=== PATIENT | female | born 1970 | race Caucasian/White ===

== ENCOUNTER 2016-09-16 14:35 | Emergency (ER) | payer BC ==
[2016-09-16 16:39] VITALS: BP 166/91
--- NOTE | 2016-09-16 16:53 | UC ---
Colt Barrera Claudia, scribed for Edward Baldwin MD on 09/16/16 at 1543 . Abdominal Pain Female HPI - HPI Summary HPI Summary: 46 year old female presents to the [facility] with epigastric pain. Pt notes the pain has been intermittent since April 2016. She notes nausea and diarrhea. She also noted AK in May 2016 but notes the pain is different from that episode. She notes that she takes plavix daily. She also notes that the pain is sometimes aggravated with certain foods like pizza and coffee and is not alleviated with milk. Pt notes the pain is intermittent sharp pain of 7-8/10 and spontaneously resolves. Pt denies constipation. - History of Current Complaint Chief Complaint: UCGI Stated Complaint: ABDOMINAL PAIN Time Seen by Provider: 09/16/16 15:26 Hx Obtained From: Patient Onset/Duration: Gradual Onset, Lasting Weeks, Still Present Timing: Intermittent Episodes Lasting: Pain Scale Used: 0-10 Numeric - 7-8/10 Location: Epigastric Radiates: No Character: Sharp Aggravating Factor(s): Other: - some foods: pizza, coffee Alleviating Factor(s): Nothing, Other: - spontaneously resolved Associated Signs and Symptoms: Positive: Nausea, Vomiting, Diarrhea, Other: - epigastric abd pain. Negative: Constipation Allergies/Adverse Reactions: Allergies Allergy/AdvReac Type Severity Reaction Status Date / Time No Known Allergies Allergy Verified 09/16/16 15:32 Home Medications: Home Medications Bupropion HCl [Bupropion HCl Xl] 150 mg PO DAILY 09/16/16 [History Confirmed ] Pantoprazole TAB (NF) [Protonix TAB (NF)] 20 mg PO DAILY 09/16/16 [History Confirmed 09/16/16] PMH/Surg Hx/FS Hx/Imm Hx Previously Healthy: Yes Endocrine History Of: Denies: Diabetes, Thyroid Disease, Hyperthyroidism, Hypothyroidism Cardiovascular History Of: Reports: Cardiac Disorders - AK 06/14; 1 stent placed , Hypertension Denies: Pacemaker/ICD Respiratory History Of: Denies: COPD, Asthma GI/ History Of: Denies: Ulcer Psychological History Of: Denies: Anxiety, Depression - Surgical History Surgical History: Yes Surgery Procedure, Year, and Place: left knee ARTHROSCOPY; tubal ligation; hysterectomy; dental extractions; cardiac stent - Family History Known Family History: Positive: Cardiac Disease Negative: Seizure Disorder - Social History Occupation: Employed Full-time Lives: With Family Alcohol Use: None Substance Use Type: None Smoking Status (MU): Heavy Every Day Tobacco Smoker Type: Cigarettes Amount Used/How Often: 1/2 ppd Length of Time of Smoking/Using Tobacco: started at age 16 Have You Smoked in the Last Year: Yes Cessation Counseling: Patient Advised to Stop - Immunization History Most Recent Influenza Vaccination: 2014 Most Recent Tetanus Shot: UTD Most Recent Pneumonia Vaccination: none Review of Systems Constitutional: Negative Skin: Negative Eyes: Negative ENT: Negative Respiratory: Negative Cardiovascular: Negative Gastrointestinal: Abdominal Pain, Diarrhea, Other - nausea Genitourinary: Negative Motor: Negative Neurovascular: Negative Musculoskeletal: Negative Neurological: Negative Psychological: Negative All Other Systems Reviewed And Are Negative: Yes Physical Exam Triage Information Reviewed: Yes Vital Signs: Initial Vital Signs Temp 98.9 F 09/16/16 15:25 Pulse 75 09/16/16 15:25 Resp 16 09/16/16 15:25 BP 134/67 09/16/16 15:25 Pulse Ox 100 09/16/16 15:25 - Additional Comments Vital signs: Reviewed Gen.: Patient is a well developed and nourished female in no acute distress. Patient is sitting comfortably on the stretcher. Head: Normacephalic and atraumatic Eyes: PERRLA, EOMI x2. Ears: Right ear canal and TM WNL and Left ear canal and TM WNL Nose and mouth: WNL Neck: Supple, Positive bilateral submandibular and anterior cervical lymphadenopathy. No JVD Lungs: CTA B/L CVS: S1 & S2 present. No murmurs appreciated. ABDOMEN: Soft, epigastric tenderness w/ positive BS. EXT: FROM x 4 NEURO: A+O X 3. Diagnostics - EKG Cardiac Rate: NL Cardiac Rhythm: Sinus: Normal - rate: 71 beats/min ST Segment: Normal - no ST elevation Abd Pain Female Course/Dx - Course Course Of Treatment: AP: 46 year old female presents to the [facility] with epigastric pain. Pt notes the pain has been intermittent since April 2016. She notes nausea and diarrhea. She also noted AK in May 2016 but notes the pain is different from that episode. She notes that she takes plavix daily. She also notes that the pain is sometimes aggravated with certain foods like pizza and coffee and is not alleviated with milk. Pt notes the pain is intermittent sharp pain of 7-8/10 and spontaneously resolves. Pt denies constipation. EKG shows NSR with no ST elevation. However the pt reports that when she had an AK she also had epigastric pain and it was shown that she had a NON ST AK. Therefore, the pt is transferred to ED. I discussed this case with provider in the ED whom accepts the pt for transfer. Pt is hemodynamically stable for transfer. - Differential Dx/Diagnosis Differential Diagnosis: ACS, Gall Bladder Disease, Pancreatitis, Urinary Tract Infection Provider Diagnoses: Epigastric pain Discharge - Discharge Plan Condition: Stable Disposition: AGAINST MEDICAL ADVICE Discharge Disposition Comment: [place] [facility] [place] Referrals: No Primary Care Phys,NOPCP [Primary Care Provider] - The documentation as recorded by the Colt mendoza Claudia accurately reflects the service I personally performed and the decisions made by me, Edward Baldwin MD.
== END 2016-09-16 16:30 | disposition left against medical advice (07) ==
LOC: UCEAST 14:35
DX: R10.13 Epigastric pain (principal); F17.210 Nicotine dependence, cigarettes, uncomplicated; I25.2 Old myocardial infarction; Z79.02 Long term (current) use of antithrombotics/antiplatelets
CPT/HCPCS: 93005; 99212; G0463

== ENCOUNTER 2016-09-16 16:48 | Emergency (ER) | payer BC ==
[2016-09-16 17:56] LABS: Urine Bacteria Absent (Absent); Urine Bilirubin Negative (Negative); Urine Glucose Negative (Negative); Urine Nitrite Negative (Negative)
--- NOTE | 2016-09-16 17:57 | ED ---
Abdominal Pain/Female - HPI Summary HPI Summary: Patient presented to [facility] for abdominal pain and was referred to the ED for evaluation due to her history of [place] and stent placement in 2016. Her pain is epigastric and is worse after meals, and has been intermittent over the last 2 weeks. She has a history of reflux that is controlled with omeprazole. She denies radiant pain, nausea, sweating, or dizziness. She denies recent illness, fever, chills, vomiting or constipation. She has chronic diarrhea, and denies urinary symptoms. - History of Current Complaint Chief Complaint: EDAbdPain Stated Complaint: CHEST PAIN-SENT FROM [facility] Time Seen by Provider: 09/16/16 17:32 Hx Obtained From: Patient ?: No Onset/Duration: Gradual Onset, Lasting Hours, Still Present Timing: Minutes Severity Initially: Mild Severity Currently: Moderate Pain Intensity: 7 Location: Epigastric Radiates: No Character: Dull Aggravating Factor(s): Food Alleviating Factor(s): Nothing Allergies/Adverse Reactions: Allergies Allergy/AdvReac Type Severity Reaction Status Date / Time No Known Allergies Allergy Verified 09/16/16 15:32 PMH/Surg Hx/FS Hx/Imm Hx Endocrine/Hematology History: Denies: Hx Diabetes, Hx Thyroid Disease Cardiovascular History: Reports: Hx Hypertension, Hx Myocardial Infarction - with 1 stent placed Denies: Hx Pacemaker/ICD, Hx Peripheral Vascular Disease Respiratory History: Denies: Hx Asthma, Hx Chronic Obstructive Pulmonary Disease (COPD) GI History: Reports: Hx Gastroesophageal Reflux Disease Denies: Hx Ulcer Musculoskeletal History: Denies: Hx Arthritis, Hx Osteoporosis Sensory History: Denies: Hx Hearing Aid Neurological History: Denies: Hx Headaches Psychiatric History: Denies: Hx Anxiety, Hx Depression, Hx Panic Disorder - Surgical History Surgery Procedure, Year, and Place: left knee ARTHROSCOPY; tubal ligation; hysterectomy; dental extractions; cardiac stent - Immunization History Date of Tetanus Vaccine: UTD Date of Influenza Vaccine: unk Infectious Disease History: Yes Infectious Disease History: Denies: Hx Clostridium Difficile, Hx Hepatitis, Hx Human Immunodeficiency Virus (HIV), Hx of Known/Suspected MRSA, Hx Shingles, Hx Tuberculosis, History Other Infectious Disease, Traveled Outside the [place] in Last 30 Days - Family History Known Family History: Positive: Cardiac Disease - Mother in 70s of [place], Other - Father, lung cancer Negative: Seizure Disorder - Social History Occupation: Employed Full-time Lives: With Family Alcohol Use: None Substance Use Type: Reports: None Smoking Status (MU): Former Smoker Type: Cigarettes Amount Used/How Often: 1/2 ppd Length of Time of Smoking/Using Tobacco: started at age 16 Have You Smoked in the Last Year: Yes Review of Systems Negative: Fever, Chills Negative: Sore Throat Negative: Chest Pain Negative: Shortness Of Breath Positive: Abdominal Pain - epigastric. Negative: Vomiting, Diarrhea Negative: Myalgia Negative: Bruising Negative: Headache, Weakness Negative: Anxious All Other Systems Reviewed And Are Negative: Yes Physical Exam - Summary Physical Exam Summary: Pleasant obese female in no acute distress seated on bed. Triage Information Reviewed: Yes Vital Signs On Initial Exam: Initial Vitals Temp Pulse Resp BP Pulse Ox 97.7 F 86 16 143/83 100 09/16/16 16:51 09/16/16 16:51 09/16/16 16:51 09/16/16 16:51 09/16/16 16:51 Vital Signs Reviewed: Yes Appearance: Positive: Well-Appearing, Pain Distress, Obese Skin: Positive: Warm, Skin Color Reflects Adequate Perfusion, Dry, Soft Head/Face: Positive: Normal Head/Face Inspection Eyes: Positive: EOMI, SAM, Conjunctiva Clear ENT: Positive: Hearing grossly normal, Pharynx normal Neck: Positive: Supple, Nontender, No Lymphadenopathy Respiratory/Lung Sounds: Positive: Clear to Auscultation, Breath Sounds Present Cardiovascular: Positive: RRR Abdomen Description: Positive: Soft. Negative: Nontender - primarily epigastric tenderness, with mild diffuse tenderness, CVA Tenderness (R), CVA Tenderness (L), Distended - body habitus is limiting, Guarding, McBurney's Point Tenderness, Peritoneal Signs, Pulsatile Mass Bowel Sounds: Positive: Present Musculoskeletal: Negative: Edema Left, Edema Right Neurological: Positive: Sensory/Motor Intact, Alert, Oriented to Person Place, Time, NV Bundle Intact Distally, Normal Gait Psychiatric: Positive: Affect/Mood Appropriate AVPU Assessment: Alert Diagnostics - Vital Signs Vital Signs Temp Pulse Resp BP Pulse Ox 09/16/16 16:51 97.7 F 86 16 143/83 100 - Laboratory Result Diagrams: 09/16/16 17:55 09/16/16 17:55 Lab Statement: Any lab studies that have been ordered have been reviewed, and results considered in the medical decision making process. - Ultrasound No standard instances Ultrasound Interpretation: No Acute Changes Ultrasound Interpretation Completed By: Radiologist Re-Evaluation - Re-Evaluation First Eval Re-Evaluation Time: 19:40 Change: Unchanged - continued epigastric pain Second Eval Re-Evaluation Time: 21:25 Change: Improved - mild improvement of pain Abdominal Pain Fem Course/Dx - Diagnoses Differential Diagnosis: Positive: ACS, Appendicitis, Bowel Obstruction, Constipation, Gall Bladder Disease, [place], Pancreatitis, Peptic Ulcer Disease, Renal Colic, Urinary Tract Infection Provider Diagnoses: Biliary colic Discharge - Discharge Plan Condition: Stable Disposition: HOME Patient Education Materials: Biliary Colic (ED) Referrals: RAJESH Philippe [Primary Care Provider] - Additional Instructions: Call your regular doctor in the morning for an appointment to be seen in the next 1-3 days for evaluation and further treatment options. Eat a bland diet and drink extra liquids. Continue your regular medications. Return to the emergency department if your symptoms worsen.
[2016-09-16 18:07] LABS: Hematocrit 40 % (35-47); Mean Corpuscular HGB Conc 32 g/dl (31-36); Mean Corpuscular Hemoglobin 27 pg (27-31); Mean Corpuscular Volume 82 fL (80-97); Mean Platelet Volume 8 um3 (7.4-10.4); Red Blood Count 4.88 10^6/ul (4.0-5.4); Red Cell Distribution Width 16 % (10.5-15); White Blood Count 9.8 10^3/ul (3.5-10.8)
[2016-09-16 18:25] LABS: Albumin 4.2 g/dL (3.2-5.2); C Reactive Protein 8.7 mg/L (< 5.00); Calcium 9.5 mg/dL (8.6-10.3); EGFR African American 104.3 (>60); EGFR Non-African American 81.1 (>60); Globulin 3.2 g/dL (2-4); Potassium 3.8 mmol/L (3.5-5.0); Total Bilirubin 0.3 mg/dL (0.2-1.0); Total Protein 7.4 g/dL (6.4-8.9)
[2016-09-16 18:27] LABS: Troponin I 0.01 ng/mL (<0.04)
--- NOTE | 2016-09-16 18:33 | RAD ---
Indication: Epigastric pain. Real-time sonography of the right upper quadrant was performed. The liver is enlarged. There are no focal lesions or intrahepatic ductal dilatation noted. The gallbladder demonstrates no gallstones, pericholecystic fluid or wall thickening. The common duct measures 3 mm. Right kidney measures 11.8 x 3.9 x 5.5 cm with no hydronephrosis. The pancreas head, neck and proximal body demonstrates no mass or pancreatic duct dilatation. Aorta and inferior vena cava are unremarkable. IMPRESSION: No evidence of cholelithiasis or biliary duct dilatation is noted. Hepatomegaly is noted.
[2016-09-16] MEDS ORDERED: Hyoscyamine TAB* 0.125 MG PO ONE (19:42)
[2016-09-16] MEDS ORDERED: Al Hydrox/Mg Hydrox/Simet LIQ* 30 ML UDC PO ONE (19:42)
[2016-09-16] MEDS ORDERED: Lidocaine 2% VISCOUS* 15 ML UDC PO ONE (19:42)
[2016-09-16 22:15] VITALS: BP 138/62
== END 2016-09-16 22:14 | disposition home or self-care (01) ==
LOC: ED 16:48
DX: K80.50 Calculus of bile duct without cholangitis or cholecystitis without obstruction (principal); Z87.891 Personal history of nicotine dependence; R10.13 Epigastric pain
CPT/HCPCS: 36415; 76705; 80053; 81003; 81015; 82150; 83605; 83690; 84484; 85025; 86140; 99283; A9270-GY

== ENCOUNTER 2018-03-24 07:04 | Emergency (ER) | payer BC ==
[2018-03-24 07:42] LABS: Urine Appearance Cloudy; Urine Color Yellow; Urine Ketones Negative (Negative); Urine Urobilinogen Negative (Negative)
[2018-03-24 07:43] LABS: Urine Blood 3+ (Negative); Urine Protein 1+(30 mg/dL) (Negative)
--- NOTE | 2018-03-24 07:44 | ED ---
GI/ HPI - HPI Summary HPI Summary: Patient is a 48-year-old female who presents emergency department for dysuria, hematuria that started this morning. Associated symptoms of low back pain. Pt. denies fever, chills, nausea, vomiting. Patient notes she has had UTIs in the past and symptoms similar today. No history of nephrolithiasis. Past medical history of coronary artery disease, hysterectomy. Symptoms are mild in severity. Urinating makes symptoms worse. Nothing makes symptoms better. - History of Current Complaint Chief Complaint: EDUrogenitalProblems Time Seen by Provider: 03/24/18 07:18 Stated Complaint: UROGENITAL PROBLEMS Hx Obtained From: Patient Pain Intensity: 8 - Additional Pertinent History Primary Care Physician: RABIA - Allergy/Home Medications Allergies/Adverse Reactions: Allergies Allergy/AdvReac Type Severity Reaction Status Date / Time No Known Allergies Allergy Verified 03/24/18 07:09 Home Medications: Home Medications Ticagrelor* [Brilinta 90 MG*] 60 mg PO BID 03/24/18 [History Confirmed 03/24/18] PMH/Surg Hx/FS Hx/Imm Hx Previously Healthy: Yes Endocrine/Hematology History: Denies: Hx Diabetes, Hx Thyroid Disease Cardiovascular History: Reports: Hx Hypertension - per office, Hx Myocardial Infarction - 06/20/16 with 1 stent placed Denies: Hx Pacemaker/ICD, Hx Peripheral Vascular Disease Respiratory History: Denies: Hx Asthma, Hx Chronic Obstructive Pulmonary Disease (COPD) GI History: Reports: Hx Gastroesophageal Reflux Disease Denies: Hx Ulcer History: Denies: Hx Dialysis, Hx Renal Disease Musculoskeletal History: Denies: Hx Arthritis, Hx Osteoporosis Sensory History: Denies: Hx Hearing Aid Neurological History: Denies: Hx Headaches Psychiatric History: Denies: Hx Anxiety, Hx Depression, Hx Panic Disorder - Surgical History Surgery Procedure, Year, and Place: left knee ARTHROSCOPY; tubal ligation; hysterectomy; dental extractions;. 2016 cardiac stent - Immunization History Date of Tetanus Vaccine: UTD Date of Influenza Vaccine: unk Immunizations Up to Date: Yes Infectious Disease History: No Infectious Disease History: Denies: Hx Clostridium Difficile, Hx Hepatitis, Hx Human Immunodeficiency Virus (HIV), Hx of Known/Suspected MRSA, Hx Shingles, Hx Tuberculosis, History Other Infectious Disease, Traveled Outside the [place] in Last 30 Days - Family History Known Family History: Positive: Cardiac Disease - Mother in 70s of [place], Other - Father, lung cancer Negative: Seizure Disorder - Social History Occupation: Employed Full-time Lives: With Family Alcohol Use: Rare Alcohol Amount: 1-2 x per month Substance Use Type: Reports: None Smoking Status (MU): Light Every Day Tobacco Smoker Type: Cigarettes Amount Used/How Often: 1/2 ppd Length of Time of Smoking/Using Tobacco: started at age 16 Have You Smoked in the Last Year: Yes Review of Systems Constitutional: Negative Negative: Fever, Chills Gastrointestinal: Negative Negative: Abdominal Pain, Vomiting, Nausea Positive: dysuria, hematuria, urgency. Negative: flank pain All Other Systems Reviewed And Are Negative: Yes Physical Exam Triage Information Reviewed: Yes Vital Signs On Initial Exam: Initial Vitals Temp Pulse Resp BP Pulse Ox 97.5 F 70 16 137/78 99 03/24/18 07:09 03/24/18 07:09 03/24/18 07:09 03/24/18 07:09 03/24/18 07:09 Vital Signs Reviewed: Yes Appearance: Positive: Well-Appearing - Pt. sitting on bed in no acute distress. present Skin: Positive: Warm, Dry Head/Face: Positive: Normal Head/Face Inspection Eyes: Positive: Normal, EOMI Neck: Positive: Supple Respiratory/Lung Sounds: Positive: Clear to Auscultation, Breath Sounds Present Cardiovascular: Positive: Normal, RRR Abdomen Description: Positive: Other: - Obese. Mild diffuse tenderness throughout. No rebound tenderness or guarding. No rigidity. Patient notes she has been having ongoing issues with her abdomen was seen numerous specialists. Minimal bilateral CVA tenderness. Neurological: Positive: Normal, CN Intact II-III Psychiatric: Positive: Affect/Mood Appropriate Diagnostics - Vital Signs Vital Signs Temp Pulse Resp BP Pulse Ox 03/24/18 07:09 97.5 F 70 16 137/78 99 - Laboratory Lab Statement: Any lab studies that have been ordered have been reviewed, and results considered in the medical decision making process. GIGU Course/Dx - Course Course Of Treatment: Patient presenting with urinary symptoms and minimal back pain. She is afebrile with stable vital signs. Back pain is located bilaterally in patient is lying on bed and extremely comfortable without much discomfort. Suspicion for nephrolithiasis is low. This was discussed with patient and she agrees. Pending UA. U/A shows elevated WBCs and RBCs. Results discussed. Will treat with keflex and pyridium. Can take tylenol for pain as directed. To increase fluids. To f.u with PCP. To return to ER for increased pain, fever, vomiting or if concerned. Pt. understands and agree with plan. - Diagnoses Differential Diagnoses - Female: Sepsis, Urinary Tract Infection, Ureteral Calculi Provider Diagnoses: UTI (urinary tract infection) Discharge - Sign-Out/Discharge Documenting (check all that apply): Patient Departure - Discharge Plan Condition: Good Disposition: HOME Prescriptions: Cephalexin CAP* [Keflex CAP*] 500 mg PO BID #20 cap Phenazopyridine TAB* [Pyridium 100 mg TAB*] 100 mg PO TID 3 Days #9 tab Patient Education Materials: Urinary Tract Infection in Women (ED) Referrals: Edward Vora MD [Primary Care Provider] - Additional Instructions: Schedule a follow up appointment with your PCP Take medication as directed Tylenol for pain as directed Increase fluids Return to ER for increased pain, fever, vomiting or if concerned - Billing Disposition and Condition Condition: GOOD Disposition: Home
[2018-03-24 07:46] LABS: Urine Red Blood Cell 3+(>10/hpf) (Absent); Urine White Blood Cell 3+(>20/hpf) (Absent)
[2018-03-24 08:34] VITALS: BP 127/85
== END 2018-03-24 08:22 | disposition home or self-care (01) ==
LOC: ED 07:04
DX: N39.0 Urinary tract infection, site not specified (principal); I25.2 Old myocardial infarction; F17.210 Nicotine dependence, cigarettes, uncomplicated; Z95.5 Presence of coronary angioplasty implant and graft; Z79.899 Other long term (current) drug therapy
CPT/HCPCS: 81003; 81015; 87086; 99282